=== PATIENT | male | born 1950 | race Caucasian/White ===

== ENCOUNTER 2017-09-04 16:57 | Emergency (ER) | payer MEDICARE, OTHER ==
[2017-09-04] MEDS ORDERED: HYDROMORPHONE HCL 2 MG/ML SOL IV ONE (17:08)
[2017-09-04] MEDS ORDERED: HYDROMORPHONE HCL 2 MG/ML SOL ONE (17:11)
[2017-09-04 19:13] VITALS: BP 128/73; PULSE 62; RESP 18; TEMP 98.2; O2SAT 98
== END 2017-09-04 18:40 | disposition home or self-care (01) | DRG 563 ==
LOC: ED 16:57
DX: S43.014A Anterior dislocation of right humerus, initial encounter (principal); X50.1XXA Overexertion from prolonged static or awkward postures, initial encounter
CPT/HCPCS: 73020; 73030; 99285; J1170; J2704

== ENCOUNTER 2017-09-11 05:38 | Emergency (ER) | payer MEDICARE, OTHER ==
[2017-09-11 06:09] LABS: BASOPHILS % (AUTO) 0 % (0-3); EOSINOPHILS % (AUTO) 1 % (0-9); HEMATOCRIT 43 % (39-53); MEAN CORPUSCULAR VOLUME 91 fL (80-100); MONOCYTES % (AUTO) 8.5 % (0-12); NEUTROPHILS % (AUTO) 82.6 % (37-80)
[2017-09-11 06:13] LABS: APPEARANCE,URINE Clear; BILIRUBIN,URINE NEGATIVE (NEGATIVE); COLOR,URINE Yellow; GLUCOSE, URINE (UA) NEGATIVE (NEGATIVE); KETONES,URINE NEGATIVE (NEGATIVE); LEUKOCYTE ESTERASE ,URINE NEGATIVE (NEGATIVE); NITRATE,URINE NEGATIVE (NEGATIVE); OCCULT BLOOD,URINE TRACE INTACT (NEG-TRACE); UROBILINOGEN,URINE 0.2 (0.2-1.0 EU)
[2017-09-11] MEDS ORDERED: MORPHINE SULFATE 10 MG/ML SOL IV ONE (06:16)
[2017-09-11 06:17] LABS: CALCIUM 9.2 mg/dl (8.5-10.1); POTASSIUM 4.5 mMol/L (3.5-5.1)
[2017-09-11 06:23] LABS: RBC,URINE 0-2 (0-3AV/HPF)
[2017-09-11] MEDS ORDERED: MORPHINE SULFATE 10 MG/ML SOL ONE (06:23)
[2017-09-11] MEDS ORDERED: SODIUM CHLORIDE 0.9% 1000ML 1,000 ML IV SCH (06:30)
[2017-09-11] MEDS ORDERED: ONDANSETRON HCL 4 MG/2 ML SOL ONE (06:30)
[2017-09-11] MEDS ORDERED: ONDANSETRON HCL 4 MG/2 ML SOL IM ONE (06:32)
[2017-09-11] MEDS ORDERED: ONDANSETRON HCL 4 MG/2 ML SOL IV ONE (06:32)
[2017-09-11] MEDS ORDERED: SODIUM CHLORIDE 0.9% FLUSH 10 ML SOL IV PRN (06:34)
[2017-09-11] MEDS ORDERED: SOLUMEDROL 125 MG/2 ML 125 MG/2 ML PDS IV ONE (06:39)
[2017-09-11] MEDS ORDERED: KETOROLAC TROMETHAMINE 30 MG/ML SOL IV ONE (06:39)
[2017-09-11] MEDS ORDERED: SOLUMEDROL 125 MG/2 ML 125 MG/2 ML PDS ONE (06:55)
[2017-09-11] MEDS ORDERED: KETOROLAC TROMETHAMINE 30 MG/ML SOL ONE (06:55)
[2017-09-11] MEDS ORDERED: TAMSULOSIN HYDROCHLORIDE 0.4 MG CAP ONE (06:58)
[2017-09-11 07:55] VITALS: BP 128/77; PULSE 74; RESP 14; TEMP 97.8; O2SAT 100
[2017-09-11] MEDS ORDERED: TAMSULOSIN HYDROCHLORIDE 0.4 MG CAP PO SCH (21:00)
== END 2017-09-11 08:33 | disposition home or self-care (01) | DRG 694 ==
LOC: ED 05:38
DX: N13.2 Hydronephrosis with renal and ureteral calculous obstruction (principal); M54.9 Dorsalgia, unspecified
CPT/HCPCS: 36415; 74176; 80048; 81001; 85025; 99285; J1885; J2270; J2405; J2930

== ENCOUNTER 2018-09-19 09:22 | Day surgery (SDC) | payer MEDICARE, OTHER ==
[~2018-09-19 09:22] MED LIST: LIDOCAINE HCL 1% MPF 30 SOL ONE; PROPOFOL 500 MG/50 ML EMU IV ONE
[2018-09-19 10:18] VITALS: BP 108/60; PULSE 101; RESP 16; TEMP 98; O2SAT 99
[2018-09-19 11:11] LABS: BASOPHILS % (AUTO) 1 % (0-3); EOSINOPHILS % (AUTO) 1 % (0-9); HEMATOCRIT 43 % (39-53); HEMOGLOBIN 14.5 gm/dl (13.5-17.7); LYMPHOCYTES % (AUTO) 10.2 % (10-50); MEAN CORPUSCULAR HEMOGLOBIN 30.9 pg (27.0-32.0); MEAN CORPUSCULAR HGB CONC 33.6 gm/dl (32.0-36.0); MEAN CORPUSCULAR VOLUME 92 fL (80-100); MONOCYTES % (AUTO) 14.4 % (0-12); NEUTROPHILS % (AUTO) 73.4 % (37-80)
[2018-09-19 11:24] LABS: ALBUMIN 2.8 gm/dl (3.4-5.0); BILIRUBIN,TOTAL 0.9 mg/dl (0.2-1.0); CALCIUM 8.7 mg/dl (8.5-10.1); CARBON DIOXIDE 30.4 mEq/L (21-32); CREATININE 1.6 mg/dl (0.80-1.30); CRP INFLAMMATORY 8.9 mg/dl (0.00-0.33); POTASSIUM 3.9 mMol/L (3.5-5.1); TOTAL PROTEIN 6.8 gm/dl (6.4-8.2)
== END 2018-09-19 11:25 | disposition home or self-care (01) | DRG 951 ==
LOC: SURG 09:22
PROVIDERS: ATTEND Internal Medicine Gastroenterology
DX: Z53.9 Procedure and treatment not carried out, unspecified reason (principal)
CPT/HCPCS: 36415; 80053; 85025; J2001; J2704

== ENCOUNTER 2018-10-31 07:58 | Day surgery (SDC) | payer MEDICARE, OTHER ==
[2018-10-31 10:27] VITALS: TEMP 97.3
[2018-10-31 10:49] VITALS: RESP 20; O2SAT 99
[2018-10-31 10:58] VITALS: BP 132/82; PULSE 61
== END 2018-10-31 11:06 | disposition home or self-care (01) | DRG 387 ==
LOC: SURG 07:58
PROVIDERS: ATTEND Internal Medicine Gastroenterology
DX: K51.90 Ulcerative colitis, unspecified, without complications (principal); K51.40 Inflammatory polyps of colon without complications; K64.8 Other hemorrhoids
CPT/HCPCS: J2001; J2704